=== PATIENT | male | born 1945 | race Caucasian/White ===

== ENCOUNTER → 2020-01-27 13:15 | Outpatient (CLI) | payer MEDICARE, BC ==
[2020-01-27 14:12] LABS: HEMATOCRIT 40.9 % (42.0-54.0); HEMOGLOBIN 13.3 g/dL (13.5-17.5); MCHC 32.5 g/dL (31.0-37.0); MCV 60.3 fL (80.0-100.0); PLATELET COUNT 327 10x3/uL (130-400); RDW 16.8 % (11.5-14.5); WBC 8.5 10x3/uL (4.8-10.8)
[2020-01-27 14:22] LABS: MCH 19.6 pg (26.0-34.0); RBC 6.78 10x6/uL (4.20-6.10)
[2020-01-27 14:46] LABS: EOSINOPHILS 4 % (0-7); LYMPHOCYTES 35 % (15-50); MONOCYTES 8 % (2-11); NEUTROPHILS 53 % (40-80); PLATELET ESTIMATE NORMAL
== END | disposition home or self-care (01) ==
LOC: D.LABREF 13:15
PROVIDERS: ATTEND Legal Medicine
DX: D86.3 Sarcoidosis of skin (principal); R71.8 Other abnormality of red blood cells; M89.8X8 Other specified disorders of bone, other site; R53.82 Chronic fatigue, unspecified

== ENCOUNTER → 2020-03-01 11:09 | Outpatient (CLI) | payer MEDICARE, BC | END | disposition home or self-care (01) | LOC: D.CT 02-29 09:30 | PROVIDERS: ATTEND Family Medicine | DX: R10.84 Generalized abdominal pain (principal); D72.829 Elevated white blood cell count, unspecified ==

== ENCOUNTER → 2020-03-25 13:32 | Outpatient (CLI) | payer MEDICARE, BC | END | disposition home or self-care (01) | LOC: D.CT 13:32 | PROVIDERS: ATTEND Family Medicine | DX: R63.4 Abnormal weight loss (principal) ==